=== PATIENT | female | born 1945 | race Caucasian/White ===

== ENCOUNTER 2020-03-31 14:04 | Inpatient (IN) ==
[2020-03-31] MEDS ORDERED: SODIUM CHLORIDE 0.9% 1000ML 1,000 ML IV ONE (14:24)
[2020-03-31] MEDS ORDERED: ACETAMINOPHEN 1,000 MG/100 ML VIAL IV STA (14:40)
--- NOTE | 2020-03-31 14:50 | XRay Report ---
XR chest 1V portable HISTORY: 74 years-old Female SEPSIS acute chest trauma status post fall. Sepsis. COMPARISON: Chest radiograph 02/01/2018 TECHNIQUE: Portable AP view of the chest FINDINGS: Cardiac silhouette is normal in size. There is a focal ill-defined 3.9 x 3.3 cm masslike opacity of t he right suprahilar lung. No pneumothorax, pleural effusion or overt pulmonary edema. Degenerative ch anges of the shoulders and spine. IMPRESSION: Focal ill-defined 3.9 cm masslike opacity of the right suprahilar lung is suggestive of p neumonia versus pulmonary lesion. Correlation with CT of the chest is recommended to further evaluate . ACT 112: Negative or not required by law. The above report was generated using voice recognition software. It may contain grammatical, syntax o r spelling errors. Electronically signed by: Aries Montenegro M.D. 03/31/2020 2:49 PM
[2020-03-31 16:03] LABS: Basophils # (auto) 0.02 K/uL (0-0.2); Basophils % (auto) 0.2 %; Hematocrit (blood only) 38.5 % (37-47); Hemoglobin 13.3 g/dL (12.0-16.0); Immature Granulocytes # (auto) 0.04 K/uL (0.00-0.02); Immature Granulocytes % (auto) 0.3 %; Lymphocytes # (auto) 0.74 K/uL (1.2-3.4); Lymphocytes % (auto) 5.7 %; Mean Corpuscular Hgb Conc 34.5 g/dL (32-36); Mean Corpuscular Volume 86.7 fL (80-100); Mean Platelet Volume 9.8 fL (7.4-10.4); Monocytes # (auto) 0.99 K/uL (0.11-0.59); Monocytes % (auto) 7.6 %; Neutrophils # (auto) 11.27 K/uL (1.4-6.5); Neutrophils % (auto) 86.2 %; Platelet Count 162 K/uL (130-400); Red Blood Count 4.44 M/uL (4.2-5.4); White Blood Count 13.06 K/uL (4.8-10.8)
[2020-03-31 16:14] LABS: INR 1.1 (0.9-1.1); Partial Thromboplastin Ratio 0.8; Prothrombin Time 11.4 Seconds (9.0-12.0)
[2020-03-31] MEDS ORDERED: LEVOFLOXACIN/D5W 750 MG/150 ML BAG IV STA (16:33)
[2020-03-31] MEDS ORDERED: CEFEPIME 2,000 MG/20 ML VIAL IV STA (16:33)
[2020-03-31 16:37] LABS: Alanine Aminotransferase 50 U/L (12-78); Albumin Level 3.3 gm/dl (3.4-5.0); Aspartate Aminotransferase 40 U/L (15-37); BUN Creatinine Ratio 13.3 (10-20); Blood Urea Nitrogen 9 mg/dl (7-18); Calcium 8.8 mg/dl (8.5-10.1); Carbon Dioxide 27 mmol/L (21-32); Chloride 101 mmol/L (98-107); Creatinine Clr Calc Pharmacy 59.8 ml/min; Est GFR (Non-African American) 84.6; Glucose 141 mg/dl (70-99); Magnesium 2.1 mg/dl (1.8-2.4); Potassium 3.4 mmol/L (3.5-5.1); Sodium 136 mmol/L (136-145)
[2020-03-31 16:41] LABS: Albumin Globulin Ratio 0.8 (0.9-2); Alkaline Phosphatase 67 U/L (45-117); Bilirubin,Total 0.8 mg/dl (0.2-1); Creatine Kinase 57 U/L (26-192); Creatine Kinase MB < 1.0 ng/ml (0.5-3.6); Globulin 4.4 gm/dl (2.5-4.0); Total Protein 7.7 gm/dl (6.4-8.2); Troponin I < 0.015 ng/ml (0-0.045)
[2020-03-31] MEDS ORDERED: OPTIRAY 320 125ml IV ONE (17:15)
[2020-03-31] MEDS ORDERED: CEFEPIME CONSULT ACTIVE PRN (17:22)
[2020-03-31] MEDS ORDERED: DOXYCYCLINE HYCLATE 100 MG in DEXTROSE 5% 100 ML IV STA (17:24)
[2020-03-31] MEDS ORDERED: ACETAMINOPHEN 325 MG TAB PO PRN (17:27)
[2020-03-31] MEDS ORDERED: PROMETHAZINE HCL 6.25 MG in SODIUM CHLORIDE 0.9% 50 ML IV PRN (17:29)
--- NOTE | 2020-03-31 17:31 | CT Scan Report ---
CT OF THE HEAD WITHOUT CONTRAST CLINICAL HISTORY: Pt c/o fall, hit head COMPARISON STUDY: Head CT February 01, 2018. CT DOSE: 745.80 mGy.cm TECHNIQUE: Helical axial images of the head were obtained without IV contrast. Automated exposure con trol was utilized for the study. A dose lowering technique was utilized adhering to the principles o f ALARA. FINDINGS: No acute intracranial hemorrhage, midline shift or mass effect is present. White matter hyp odensities are unchanged and suggest small vessel disease. The ventricular system is unremarkable. No calcifications are unchanged. The basilar cisterns are patent. No extra-axial collections are presen t. There are no findings to suggest acute dural sinus thrombosis or acute territorial infarct. No sig nificant calvarial abnormalities are present. Visualized portions of the sinuses and mastoid air cell s are clear. IMPRESSION: 1. No acute intracranial findings. 2. No calvarial fracture. ACT 112: Negative or not required by law. Electronically signed by: Denton Law M.D. 03/31/2020 5:30 PM
[2020-03-31] MEDS ORDERED: POTASSIUM CHLORIDE 20 MEQ TABCR PO STA (17:32)
[2020-03-31] MEDS ORDERED: POTASSIUM CHLORIDE / WTR 10 MEQ/100 ML PLCT IV STA (17:35)
[2020-03-31] MEDS ORDERED: SODIUM CHLORIDE 0.9% 1000ML 1,000 ML IV STA (17:35)
--- NOTE | 2020-03-31 17:40 | CT Scan Report ---
CT ANGIOGRAPHY OF THE CHEST, PULMONARY EMBOLUS PROTOCOL CLINICAL HISTORY: Fall. Chest pain. Abnormal chest radiograph. COMPARISON STUDY: Chest radiographs February 02, 2008 18 and March 31, 2020. TECHNIQUE: Following IV administration of Optiray-320, helical axial images of the chest were obtaine d utilizing the pulmonary embolus protocol. Maximal intensity projections and sagittal and coronal r eformats were viewed on an independent 3D workstation. IV contrast was administered without complica tion. Automated exposure control was utilized for the study. A dose lowering technique was utilized adhering to the principles of ALARA. FINDINGS: Left lobe thyroid nodule is incidentally noted. No pulmonary emboli are identified. There is no evidence for traumatic injury to the thoracic aorta. The heart is mildly enlarged. There is no pericardial effusion. There is no pneumothorax or pleural effusion. There is moderate right upper lob e consolidation. Central airways are patent. Several right-sided rib fractures are likely old. Upper abdomen is unremarkable. There is a probable splenule. A few mild thoracic spine compression deformit ies are likely old. IMPRESSION: 1. No pulmonary emboli identified. 2. Moderate upper lobe consolidation suggestive of pneumonia. 3. No acute traumatic findings within the chest. ACT 112: Negative or not required by law. Electronically signed by: Denton Law M.D. 03/31/2020 5:38 PM
--- NOTE | 2020-03-31 18:09 | History & Physical Report ---
Date of Service March 31, 2020 Assessment & Plan (1) Fall: -initial reason for ED presentation was because patient fell and hit her head 1 day ago and when waking up on 03/31/2020 she reported feeling dizzy still and her helped her come to hospital -No acute intracranial findings and No calvarial fracture on CT head scan -get PT/OT evaluations (2) Right upper lobe pneumonia: -however, incidentally while being evaluated in the ED after her fall at home, patient was found to have fever of 39.3 celsius and her Chest X ray of a Focal ill-defined 3.9 cm masslike opacity of the right suprahilar lung is suggestive of pneumonia versus pulmonary lesion -ED physician ordered CTA and No pulmonary emboli identified but the Moderate upper lobe consolidation suggestive of pneumonia -patient is to be started on cefepime and doxycycline -she has history of penicillin allergy but her believes that this was from when she was a child and likely on a rash. Patient does have outpatient listed drug allergies that meclizine and prochlorperazine can cause angioedema -follow the blood cultures. obtain sputum cultures. the procalcitonin is, oddly, negative. (3) Hypertension: -described in outpatient notes -unclear as to whether patient is taking blood pressure medications at this time, outpatient primary care notes does not mention recent anti-hypertensives, the patient personally denies taking any blood pressure medications, patient's by phone [phone] reports that she is taking blood pressure medication similar to him. admitting hospitalist have asked her to bring in her home medications to the hospital for medical reconciliation when possible, admitting physician called patient's pharmacy of [facility] and the pharmacist could not verify any blood pressure medications -monitor the blood pressure (4) Hyperlipidemia: -continue home dose atorvastatin 20 mg daily (5) Blind left eye: -chronic condition, this was secondary to histoplasmosis as per outpatient records DVT prophylaxis as Loevnox History of Present Illness -initial reason for ED presentation was because patient fell and hit her head 1 day ago and when waking up on 03/31/2020 she reported feeling dizzy still and her helped her come to hospital -No acute intracranial findings and No calvarial fracture on CT head scan -however, incidentally while being evaluated in the ED after her fall at home, patient was found to have fever of 39.3 celsius and her Chest X ray of a Focal ill-defined 3.9 cm masslike opacity of the right suprahilar lung is suggestive of pneumonia versus pulmonary lesion -ED physician ordered CTA and No pulmonary emboli identified but the Moderate upper lobe consolidation suggestive of pneumonia -patient is to be started on cefepime and doxycycline -she has history of penicillin allergy but her believes that this was from when she was a child and likely on a rash. Patient does have outpatient listed drug allergies that meclizine and prochlorperazine can cause angioedema on review of systems, patient is hard of hearing but she denies any prior symptoms of fevers, shortness of breath (breathing on room air), chest pain, abdomen pain, nausea, vomiting, problems with urination, problems with bowel movements Primary Care Provider: Chelsea Monson DO Allergies Allergy/AdvReac Type Severity Reaction Status Date / Time meclizine Allergy Unknown THROAT Unverified 02/01/18 19:52 SWELLS Penicillins Allergy Unknown RASH Unverified 02/01/18 19:52 prochlorperazine Allergy Difficulty Verified 03/31/20 18:09 [From Compazine] Breathing Home Medications Home Medications Medication Instructions Recorded Confirmed Type atorvastatin 20 mg PO DAILY 03/31/20 03/31/20 History Past Med/Surg History Social History Smoking Status: Never smoker Feels Safe at Home: Yes Review of Systems Review of Systems: All systems reviewed & are unremarkable except as noted in Subjective Physical Exam Constitutional: comfortable and + combative hard of hearing Eyes: left eye blindness, chronic ENMT: external ear and nose normal, oropharynx normal Neck: trachea midline, no thyromegaly normal visual inspection Respiratory: normal respiratory effort, lungs clear to auscultation Cardiovascular: Rate/Rhythm: regular rate and regular rhythm Gastrointestinal (Abdomen): normal bowel sounds, soft, nontender, no hepatos plenomegaly Musculoskeletal: Head/Neck/Chest: normocephalic and head atraumatic Neurologic: moves all extremities Psychiatric: Orientation: alert and cooperative Results & Data Results & Data ([facility]) Vital Signs (Past 12 Hours) Vital Signs Temp Pulse Resp BP Pulse Ox 03/31/20 17:55 36.7 C 03/31/20 17:40 93 H 24 93 03/31/20 17:31 93 03/31/20 17:30 123/72 93 03/31/20 17:25 121/65 93 03/31/20 17:24 94 03/31/20 16:50 87 20 94 03/31/20 16:45 88 22 133/74 94 03/31/20 16:40 93 H 23 95 03/31/20 16:31 89 19 95 03/31/20 16:30 89 20 134/74 94 03/31/20 16:20 92 H 16 95 03/31/20 16:15 101 H 21 121/76 95 03/31/20 16:10 93 H 18 95 03/31/20 16:01 95 H 21 94 03/31/20 16:00 95 H 21 143/83 H 93 03/31/20 15:50 99 H 18 95 03/31/20 15:45 99 H 23 152/76 H 93 03/31/20 15:40 100 H 23 03/31/20 15:35 100 H 21 93 03/31/20 15:30 98 H 19 161/85 H 94 03/31/20 14:06 39.3 C H 104 H 18 137/83 93 Code Status & VTE Plan VTE Prophylaxis Plan VTE Prophylaxis will be ordered: Yes
--- NOTE | 2020-03-31 18:22 | Electrocardiogram Report ---
Test Reason : Blood Pressure : / mmHG Vent. Rate : 103 BPM Atrial Rate : 103 BPM P-R Int : 126 ms QRS Dur : 072 ms QT Int : 332 ms P-R-T Axes : 064 047 040 degrees QTc Int : 434 ms Sinus tachycardia Possible Left atrial enlargement Borderline ECG When compared with ECG of 01-FEB-2018 18:19, No significant change was found Confirmed by Gio Escalante ([id number]) on 03/31/2020 6:21:39 PM Referred By: Confirmed By:Alok Escalante
[2020-03-31 18:36] LABS: Appearance Urine Clear (Clear); Bacteria Urine Automated Negative (Negative); Bilirubin Urine Negative (Negative); Blood Urine Trace (Negative); Color Urine Yellow; Epithelial Cell Urine Auto >30 /lpf (0-5); Glucose Urine UA Negative (Negative); Ketones Urine 1+ (Negative); Leukocyte Esterase Urine Negative (Negative); Nitrite Urine Negative (Negative); Protein Urine Trace (Negative); RBC Urine Automated 0-4 /hpf (0-4); Specific Gravity Urine > 1.045 (1.000-1.030); Urobilinogen Urine Negative (Negative); pH Urine 5.5 (4.5-7.5)
[2020-03-31] MEDS ORDERED: ONDANSETRON INJ 2 MG/ML 2 ML VIAL IV PRN (20:20)
[2020-03-31 23:41] LABS: BUN Creatinine Ratio 10.9 (10-20); C Reactive Protein 9.39 mg/dl (0-0.29); Calcium 8.8 mg/dl (8.5-10.1); Creatinine Clr Calc Pharmacy 58.1 ml/min; Est GFR (African American) 95.9; Est GFR (Non-African American) 82.7
[2020-04-01] MEDS: CEFEPIME 2,000 MG in SYRINGE 7.5 ML IV SCH ×4 (00:44→22:45)
[2020-04-01] MEDS: DOXYCYCLINE HYCLATE 100 MG in DEXTROSE 5% 100 ML IV SCH ×2 (05:28→19:00)
[2020-04-01 05:39] LABS: Basophils # (auto) 0.01 K/uL (0-0.2); Basophils % (auto) 0.1 %; Hematocrit (blood only) 34.9 % (37-47); Hemoglobin 11.7 g/dL (12.0-16.0); Immature Granulocytes # (auto) 0.03 K/uL (0.00-0.02); Immature Granulocytes % (auto) 0.3 %; Lymphocytes # (auto) 1.11 K/uL (1.2-3.4); Lymphocytes % (auto) 11.4 %; Mean Corpuscular Hemoglobin 29.2 pg (25-34); Mean Corpuscular Hgb Conc 33.5 g/dL (32-36); Mean Platelet Volume 9.6 fL (7.4-10.4); Monocytes # (auto) 0.67 K/uL (0.11-0.59); Monocytes % (auto) 6.9 %; Neutrophils # (auto) 7.91 K/uL (1.4-6.5); Neutrophils % (auto) 81.3 %; Platelet Count 157 K/uL (130-400); RDW Coefficient of Variation 13.2 % (11.5-14.5); RDW Standard Deviation 42.5 fL (36.4-46.3); Red Blood Count 4.01 M/uL (4.2-5.4); White Blood Count 9.73 K/uL (4.8-10.8)
[2020-04-01 06:10] LABS: Albumin Globulin Ratio 0.7 (0.9-2); Albumin Level 2.8 gm/dl (3.4-5.0); BUN Creatinine Ratio 10.4 (10-20); Bilirubin,Total 0.5 mg/dl (0.2-1); Calcium 8.2 mg/dl (8.5-10.1); Creatinine Clr Calc Pharmacy 58.9 ml/min; Est GFR (African American) 97.5; Est GFR (Non-African American) 84.2; Globulin 3.9 gm/dl (2.5-4.0); Potassium 3.4 mmol/L (3.5-5.1); Total Protein 6.7 gm/dl (6.4-8.2)
[2020-04-01] MEDS ORDERED: POTASSIUM CHLORIDE 20 MEQ TABCR PO STA (09:38)
--- NOTE | 2020-04-01 18:02 | Hospitalist Progress Note ---
Date of Service April 01, 2020 Assessment & Plan (1) Fall: Dizziness Fall CT head: No acute intracranial findings. No calvarial fracture. PT/OT Fall precautions (2) Right upper lobe pneumonia: Sepsis-POA Right Upper Lobe Pneumonia Chest CTA: No pulmonary emboli identified. Moderate upper lobe consolidation suggestive of pneumonia. No acute traumatic findings within the chest. Blood Cx:pending COVID-19 PCR: Negative Negative Procalcitonin On Cefepime, Doxycycline (3) Hypertension: Currently not on any meds Monitor (4) Hyperlipidemia: continue atorvastatin (5) Blind left eye: chronic condition DVT Px: Lovenox SQ Admission and Anticipated Discharge Date Admission Date: March 31, 2020 Subjective Patient is seen and examined at bedside History is difficult to obtain--due to significant hearing impairment Reports cough Denies chest pain, shortness of breath, dizziness, nausea, abdominal pain Febrile today Discussed with patient's family in detail at bedside Review of Systems Review of Systems: All systems reviewed & are unremarkable except as noted in HPI & below Physical Exam Physical Exam: Physical Exam: Vitals signs as noted above General Appearance:Moderately built and nourished, no apparent distress Head: normocephalic, Atraumatic Eyes: normal inspection, EOMI Neck: supple, Trachea midline Respiratory/Chest: Normal breath sounds, CTA Cardiovascular: S1, S2, No murmur Abdomen/GI:Soft, Non tender, Bowel sounds present Extremities/Musculoskelatal:normal inspection, no edema Neurologic/Psych:AAOX3, grossly no focal neurological deficits, +Hearing impairment Skin: normal color, warm Results & Data Results & Data ([facility]) Vital Signs (Past 12 Hours) Vital Signs Temp Pulse Resp BP Pulse Ox 04/01/20 17:50 37.2 C 04/01/20 16:16 38.2 C H 04/01/20 15:17 38.0 C H 97 H 18 109/65 95 04/01/20 07:21 37.6 C H 99 H 18 128/74 95 Laboratory Results Short CBC 04/01/20 Range/Units 05:18 WBC 9.73 (4.8-10.8) K/uL Hgb 11.7 L (12.0-16.0) g/dL Hct 34.9 L (37-47) % Plt Count 157 (130-400) K/uL BMP 03/31/20 04/01/20 23:02 05:18 Sodium 139 139 Potassium 4.0 D 3.4 L Chloride 108 H 108 H Carbon Dioxide 25 24 BUN 8 7 Creatinine 0.71 0.70 Glucose 134 H 137 H Calcium 8.8 8.2 L Liver Function 04/01/20 Range/Units 05:18 Total Bilirubin 0.5 (0.2-1) mg/dl AST 32 (15-37) U/L ALT 45 (12-78) U/L Alkaline Phosphatase 55 (45-117) U/L Albumin 2.8 L (3.4-5.0) gm/dl Urine 03/31/20 Range/Units 18:04 Urine Color Yellow Urine Appearance Clear (Clear) Urine pH 5.5 (4.5-7.5) Ur Specific [place] > 1.045 H (1.000-1.030) Urine Protein Trace H (Negative) Urine Glucose (UA) Negative (Negative)
[2020-04-02] MEDS: DOXYCYCLINE HYCLATE 100 MG in DEXTROSE 5% 100 ML IV SCH ×2 (05:44→17:18)
[2020-04-02 05:57] LABS: Hematocrit (blood only) 33.2 % (37-47); Hemoglobin 11.1 g/dL (12.0-16.0); Mean Corpuscular Hemoglobin 28.6 pg (25-34); Mean Corpuscular Hgb Conc 33.4 g/dL (32-36); Mean Corpuscular Volume 85.6 fL (80-100); Mean Platelet Volume 9.6 fL (7.4-10.4); Platelet Count 160 K/uL (130-400); RDW Coefficient of Variation 13.5 % (11.5-14.5); RDW Standard Deviation 42.3 fL (36.4-46.3); Red Blood Count 3.88 M/uL (4.2-5.4); White Blood Count 7.42 K/uL (4.8-10.8)
[2020-04-02 06:30] LABS: BUN Creatinine Ratio 13.3 (10-20); Calcium 8.7 mg/dl (8.5-10.1); Creatinine Clr Calc Pharmacy 85.9 ml/min; Est GFR (African American) 110.4; Est GFR (Non-African American) 95.3; Potassium 3.8 mmol/L (3.5-5.1)
[2020-04-02] MEDS: ENOXAPARIN INJ 40 MG/0.4 ML SYR SQ SCH (08:06)
[2020-04-02] MEDS: cefTRIAXone SODIUM 1,000 MG in DEXTROSE 5% 50 ML IV SCH (08:07)
[2020-04-02 09:51] LABS: C-Reactive Protein High Sens. >10.0 mg/L
--- NOTE | 2020-04-02 18:10 | Hospitalist Progress Note ---
Date of Service April 02, 2020 Assessment & Plan (1) Fall: Dizziness Fall CT head: No acute intracranial findings. No calvarial fracture. PT/OT Fall precautions (2) Right upper lobe pneumonia: Sepsis-POA Right Upper Lobe Pneumonia Chest CTA: No pulmonary emboli identified. Moderate upper lobe consolidation suggestive of pneumonia. No acute traumatic findings within the chest. Blood Cx:Negative to date COVID-19 PCR: Negative Negative Procalcitonin On Cefepime, Doxycycline>> transition to ceftriaxone, doxycycline Symptomatically improved (3) Hypertension: Currently not on any meds Monitor (4) Hyperlipidemia: continue atorvastatin (5) Blind left eye: chronic condition DVT Px: Lovenox SQ Admission and Anticipated Discharge Date Admission Date: March 31, 2020 Subjective Patient is seen and examined at bedside History is difficult to obtain--due to significant hearing impairment States feeling well today No specific complaints Discussed with patient's family at bedside Low-grade fever today afternoon No significant cough Denies chest pain, shortness of breath, dizziness, nausea, abdominal pain Review of Systems Review of Systems: All systems reviewed & are unremarkable except as noted in HPI & below Physical Exam Physical Exam: Physical Exam: Vitals signs as noted above General Appearance:Moderately built and nourished, no apparent distress Head: normocephalic, Atraumatic Eyes: normal inspection, EOMI Neck: supple, Trachea midline Respiratory/Chest: Normal breath sounds, CTA Cardiovascular: S1, S2, No murmur Abdomen/GI:Soft, Non tender, Bowel sounds present Extremities/Musculoskelatal:normal inspection, no edema Neurologic/Psych:AAOX3, grossly no focal neurological deficits, +Hearing impairment Skin: normal color, warm Results & Data Results & Data ([facility]) Vital Signs (Past 12 Hours) Vital Signs Temp Pulse Resp BP Pulse Ox 04/02/20 15:07 37.6 C H 99 H 18 120/63 97 04/02/20 07:56 36.9 C 89 16 128/73 96 Laboratory Results Short CBC 04/02/20 Range/Units 05:29 WBC 7.42 (4.8-10.8) K/uL Hgb 11.1 L (12.0-16.0) g/dL Hct 33.2 L (37-47) % Plt Count 160 (130-400) K/uL BMP 04/02/20 05:29 Sodium 138 Potassium 3.8 Chloride 108 H Carbon Dioxide 23 BUN 6 L Creatinine 0.48 L Glucose 122 H Calcium 8.7
--- NOTE | 2020-04-03 03:41 | Emergency Department Note ---
History of Present Illness General Chief complaint: Fall Stated complaint: FALL AND HIT HEAD YESTERDAY,UNSTEADY Time Seen by Provider: 03/31/20 14:24 Source: patient, family (), RN notes reviewed and old records reviewed Mode of arrival: ambulatory Limitations: no limitations History of Present Illness Provider complaint: Fall, hit head Location: head Radiation: non-radiation Maximum Pain Intensity: 0 Associated symptoms: + fever/chills, + nausea/vomiting and + weakness; no chest pain, no diaphoresis, no headaches and no shortness of breath Treatments prior to arrival: none This is a 74-year-old female brought in by her over concerns of the patient had a fall and has been weak since the fall. Patient reports she tripped over uneven carpet in her house and hit her head. Since that time approximately 1 day ago she has been extremely weak and has been having difficulty ambulating around her house. Patient denies any other symptoms including cough diaphoresis chills. She denies any pain. Home Medications Home Medications Medication Instructions Recorded Confirmed Type atorvastatin 20 mg PO DAILY 03/31/20 03/31/20 History Allergies Allergy/AdvReac Type Severity Reaction Status Date / Time meclizine Allergy Unknown THROAT Unverified 02/01/18 19:52 SWELLS Penicillins Allergy Unknown RASH Unverified 02/01/18 19:52 prochlorperazine Allergy Difficulty Verified 03/31/20 18:09 [From Compazine] Breathing Past Med/Surg History Medical History Alzheimer disease Hearing deficit Hyperlipidemia Osteoarthritis Syncope Surgical History History of laparoscopy History of tonsillectomy History of tooth extraction Family History Mother Family hx of colon cancer Social History Smoking Status: Never smoker Second Hand Exposure: No; Do You Dip or Chew Tobacco: No; Tobacco Cessation Education Requested by Patient: No Hx Alcohol Use: Yes Alcohol type: beer Hx Substance Use: No Communication Ability: Effective Director Of Compliance Required: No Beliefs That Will Affect Care: Mu-Ism Mu-Ism Beliefs: Spiritism Current Living Situation: Spouse Other Information That Helps Us Care for You: No Feels Safe at Home: Yes Safety Concerns: Feels Safe At This Time Review of Systems A total of 10 systems reviewed and were otherwise negative Physical Exam VITAL SIGNS - Vital signs and nursing notes were reviewed. GENERAL - 74-year-old female appearing stated age who is in no acute distress. Communicates well with provider and answers questions appropriately. SKIN - Without rashes. HEAD - NC/AT. EYES - PERRL with EOMI bilaterally. Sclera anicteric. Palpebral conjunctiva pink and moist with no injection noted. EARS - No deformities of external structures noted on gross examination bilaterally. No pain elicited with palpation of the tragus bilaterally. External auditory canals without discharge or otorrhea. Tympanic membranes pearly dupont without retraction or bulging. No fluid or purulent material visualized behind the TM. Handle of malleus, umbo, cone of light, pars tensa/flaccid all easily visualized. NOSE - Midline and without cyanosis. No epistaxis or purulent drainage noted. Septum midline without deviation or septal hematoma noted. MOUTH/OROPHARYNX - Without perioral cyanosis. Buccal mucosa pink and moist and without leukoplakia. Tongue midline with equal elevation of palate bilaterally. No tonsillar hypertrophy, erythema, or exudates noted. dentition noted. NECK - Neck with FROM. Supple to palpation. lymphadenopathy noted. No nuchal rigidity. LUNGS - Chest wall symmetric without accessory muscle use, intercostals retractions, or central cyanosis. Normal vesicular breath sounds CTA B/L. No wheezes, rales, or rhonchi appreciated. CARDIAC - RRR with S1/S2. No murmur, rubs, or gallops appreciated. ABDOMEN - Abdominal contour without pulsations or visible masses. BS normoactive all four quadrants. No tenderness, palpable masses, hepatospl enomegaly, or ascites noted. EXTREMITIES - No clubbing or peripheral cyanosis. No pretibial edema present. +3/5 radial, posterior tibial, and dorsalis pedis pulses palpated throughout. +5/5 strength noted in UE/LE bilaterally. NEUROLOGIC - Cranial nerves II through XII grossly intact. Sensory intact to light touch throughout. Patellar reflexes +2/4. PSYCH - A&Ox3 and cooperates fully with examiner. Pt is very pleasant and interacts well with examiner. Course Administered Medications Acetaminophen (Acetaminophen 325 Mg Tab) 325 mg PO Q6H PRN PRN Reason: Pain or Fever Stop: 04/30/20 17:29 Last Admin: 04/01/20 16:17 Dose: 325 mg Documented by: [id number] Enoxaparin Sodium (Enoxaparin Inj 40 Mg/0.4 Ml Syr) 40 mg SQ QAM RADHA Stop: 05/02/20 08:59 Last Admin: 04/02/20 08:06 Dose: 40 mg Documented by: [id number] Doxycycline Hyclate 100 mg/ (Dextrose) 110 mls @ 50 mls/hr IV Q12H [facility] Stop: 04/08/20 05:59 Last Infusion: 04/02/20 19:38 Dose: 0 mls/hr Documented by: [id number] Admin: 04/02/20 17:18 Dose: 100 mls/hr Documented by: [id number] Infusion: 04/02/20 08:05 Dose: 0 mls/hr Documented by: [id number] Admin: 04/02/20 05:44 Dose: 50 mls/hr Documented by: [id number] Infusion: 04/01/20 21:36 Dose: 0 mls/hr Documented by: [id number] Admin: 04/01/20 19:00 Dose: 50 mls/hr Documented by: [id number] Infusion: 04/01/20 07:40 Dose: 0 mls/hr Documented by: [id number] Admin: 04/01/20 05:28 Dose: 50 mls/hr Documented by: [id number] Ceftriaxone Sodium 1,000 mg/ (Dextrose) 60 mls @ 120 mls/hr IV Q24H [facility]; Protocol Stop: 04/09/20 07:59 Last Infusion: 04/02/20 09:31 Dose: 0 mls/hr Documented by: [id number] Admin: 04/02/20 08:07 Dose: 120 mls/hr Documented by: [id number] Discontinued Medications Sodium Chloride (Nss 1000ml) 1,000 mls @ 999 mls/hr IV .Q1H1M ONE Stop: 03/31/20 15:24 Last Infusion: 03/31/20 17:25 Dose: 0 mls/hr Documented by: [id number] Admin: 03/31/20 16:00 Dose: 999 mls/hr Documented by: [id number] Acetaminophen (Ofirmev) 1,000 mg in 100 mls @ 400 mls/hr IV NOW STA Stop: 03/31/20 14:54 Last Infusion: 03/31/20 16:17 Dose: 0 mls/hr Documented by: [id number] Admin: 03/31/20 16:00 Dose: 400 mls/hr Documented by: [id number] Cefepime HCl (Maxipime) 2,000 mg in 20 mls @ 5 mls/min IV NOW STA; Protocol Stop: 03/31/20 16:36 Last Admin: 03/31/20 17:29 Dose: 5 mls/min Documented by: [id number] Levofloxacin/Dextrose (Levaquin/D5w) 750 mg in 150 mls @ 100 mls/hr IV NOW STA Stop: 03/31/20 18:02 Last Admin: 04/01/20 07:44 Dose: Not Given Documented by: [id number] Cefepime HCl 2,000 mg/ Syringe 20 mls @ 5.5 mls/min IV Q8H [facility]; Protocol Stop: 04/02/20 00:01 Last Admin: 04/01/20 22:45 Dose: 5.5 mls/min Documented by: [id number] Admin: 04/01/20 16:20 Dose: 5.5 mls/min Documented by: [id number] Admin: 04/01/20 07:54 Dose: 5.5 mls/min Documented by: [id number] Admin: 04/01/20 00:44 Dose: 5.5 mls/min Documented by: [id number] Doxycycline Hyclate 100 mg/ (Dextrose) 110 mls @ 50 mls/hr IV ONE STA Stop: 03/31/20 19:35 Last Infusion: 03/31/20 20:03 Dose: 0 mls/hr Documented by: [id number] Admin: 03/31/20 17:51 Dose: 50 mls/hr Documented by: [id number] Sodium Chloride (Nss 1000ml) 1,000 mls @ 80 mls/hr IV .B20H29H STA Stop: 04/01/20 06:04 Last Infusion: 04/01/20 06:32 Dose: 0 mls/hr Documented by: [id number] Admin: 03/31/20 18:13 Dose: 80 mls/hr Documented by: [id number] Potassium Chloride (K Jacobo / Wtr) 10 meq in 100 mls @ 100 mls/hr IV ONE STA Stop: 03/31/20 18:34 Last Infusion: 03/31/20 19:13 Dose: 0 mls/hr Documented by: [id number] Admin: 03/31/20 18:13 Dose: 100 mls/hr Documented by: [id number] Ioversol (Optiray 320 125ml) 120 ml IV ONCE ONE Stop: 03/31/20 17:16 Last Admin: 03/31/20 17:15 Dose: 120 ml Documented by: [id number] Miscellaneous Information (Cefepime Consult Active) 1 ea N/A UD PRN PRN Reason: Consult Stop: 04/02/20 00:01 Last Admin: 03/31/20 17:30 Dose: 1 ea Documented by: [id number] Potassium Chloride (Potassium Chloride 20 Meq Tabcr) 40 meq PO NOW STA Stop: 03/31/20 17:33 Last Admin: 03/31/20 18:14 Dose: 40 meq Documented by: [id number] Potassium Chloride (Potassium Chloride 20 Meq Tabcr) 40 meq PO NOW STA Stop: 04/01/20 09:39 Last Admin: 04/01/20 11:14 Dose: 40 meq Documented by: [id number] Medical Decision Making Differential Diagnosis Infection, dehydration, metabolic abnormality, hypo/hyperglycemia, electrolyte disturbance, anemia, hypoxia, cardiac sources, intracerebral event, toxicologic, neurologic, as well as other pathologies. Medical Records Attestation: I reviewed the patient's medical records. Home Medications Current Medication List: was personally reviewed by me Laboratory Data Attestation: I reviewed the patient's lab results. Result diagrams: 04/02/20 05:29 04/02/20 05:29 Lab Results 03/31/20 03/31/20 03/31/20 Range/Units 15:25 15:25 15:30 WBC 13.06 H (4.8-10.8) K/uL RBC 4.44 (4.2-5.4) M/uL Hgb 13.3 (12.0-16.0) g/dL Hct 38.5 (37-47) % MCV 86.7 (80-100) fL MCH 30.0 (25-34) pg MCHC 34.5 (32-36) g/dL RDW Std Deviation 42.0 (36.4-46.3) fL RDW Coeff of Shana 13.0 (11.5-14.5) % Plt Count 162 (130-400) K/uL MPV 9.8 (7.4-10.4) fL Immature Gran % (Auto) 0.3 % Neut % (Auto) 86.2 % Lymph % (Auto) 5.7 % [place] % (Auto) 7.6 % Eos % (Auto) 0.0 % Baso % (Auto) 0.2 % Neut # (Auto) 11.27 H (1.4-6.5) K/uL Lymph # (Auto) 0.74 L (1.2-3.4) K/uL [place] # (Auto) 0.99 H (0.11-0.59) K/uL Eos # (Auto) 0.00 (0-0.5) K/uL Baso # (Auto) 0.02 (0-0.2) K/uL Immature Gran # (Auto) 0.04 H (0.00-0.02) K/uL PT (9.0-12.0) Seconds INR (0.9-1.1) APTT (21.0-31.0) Seconds PTT Ratio Sodium (136-145) mmol/L Potassium (3.5-5.1) mmol/L Chloride (98-107) mmol/L Carbon Dioxide (21-32) mmol/L Anion Gap (3-11) BUN (7-18) mg/dl Creatinine (0.6-1.2) mg/dl Est Cr Clr Drug Dosing ml/min Est GFR ( Amer) Est GFR (Non-Af Amer) BUN/Creatinine Ratio (10-20) Glucose (70-99) mg/dl Lactate (0.4-2.0) mmol/L Calcium (8.5-10.1) mg/dl Magnesium (1.8-2.4) mg/dl Total Bilirubin (0.2-1) mg/dl AST (15-37) U/L ALT (12-78) U/L Alkaline Phosphatase (45-117) U/L Total Creatine Kinase (26-192) U/L CK-MB (CK-2) (0.5-3.6) ng/ml CK/CKMB % Calc Troponin I (0-0.045) ng/ml Total Protein (6.4-8.2) gm/dl Albumin (3.4-5.0) gm/dl Globulin (2.5-4.0) gm/dl Albumin/Globulin Ratio (0.9-2) Procalcitonin (0-0.5) ng/ml COVID-19 Eval Order Covid19 Done at [facility] COVID-19 PCR NEGATIVE (Negative) 03/31/20 03/31/20 03/31/20 Range/Units 15:30 15:30 15:30 WBC (4.8-10.8) K/uL RBC (4.2-5.4) M/uL Hgb (12.0-16.0) g/dL Hct (37-47) % MCV (80-100) fL MCH (25-34) pg MCHC (32-36) g/dL RDW Std Deviation (36.4-46.3) fL RDW Coeff of Shana (11.5-14.5) % Plt Count (130-400) K/uL MPV (7.4-10.4) fL Immature Gran % (Auto) % Neut % (Auto) % Lymph % (Auto) % [place] % (Auto) % Eos % (Auto) % Baso % (Auto) % Neut # (Auto) (1.4-6.5) K/uL Lymph # (Auto) (1.2-3.4) K/uL [place] # (Auto) (0.11-0.59) K/uL Eos # (Auto) (0-0.5) K/uL Baso # (Auto) (0-0.2) K/uL Immature Gran # (Auto) (0.00-0.02) K/uL PT 11.4 (9.0-12.0) Seconds INR 1.1 (0.9-1.1) APTT 22.0 (21.0-31.0) Seconds PTT Ratio 0.8 Sodium 136 (136-145) mmol/L Potassium 3.4 L (3.5-5.1) mmol/L Chloride 101 (98-107) mmol/L Carbon Dioxide 27 (21-32) mmol/L Anion Gap 8.0 (3-11) BUN 9 (7-18) mg/dl Creatinine 0.69 (0.6-1.2) mg/dl Est Cr Clr Drug Dosing 59.8 ml/min Est GFR ( Amer) 98.0 Est GFR (Non-Af Amer) 84.6 BUN/Creatinine Ratio 13.3 (10-20) Glucose 141 H (70-99) mg/dl Lactate (0.4-2.0) mmol/L Calcium 8.8 (8.5-10.1) mg/dl Magnesium 2.1 (1.8-2.4) mg/dl Total Bilirubin 0.8 (0.2-1) mg/dl AST 40 H (15-37) U/L ALT 50 (12-78) U/L Alkaline Phosphatase 67 (45-117) U/L Total Creatine Kinase 57 (26-192) U/L CK-MB (CK-2) < 1.0 (0.5-3.6) ng/ml CK/CKMB % Calc TNP Troponin I < 0.015 (0-0.045) ng/ml Total Protein 7.7 (6.4-8.2) gm/dl Albumin 3.3 L (3.4-5.0) gm/dl Globulin 4.4 H (2.5-4.0) gm/dl Albumin/Globulin Ratio 0.8 L (0.9-2) Procalcitonin 0.14 (0-0.5) ng/ml COVID-19 Eval Order COVID-19 PCR (Negative) 03/31/20 Range/Units 15:46 WBC (4.8-10.8) K/uL RBC (4.2-5.4) M/uL Hgb (12.0-16.0) g/dL Hct (37-47) % MCV (80-100) fL MCH (25-34) pg MCHC (32-36) g/dL RDW Std Deviation (36.4-46.3) fL RDW Coeff of Shana (11.5-14.5) % Plt Count (130-400) K/uL MPV (7.4-10.4) fL Immature Gran % (Auto) % Neut % (Auto) % Lymph % (Auto) % [place] % (Auto) % Eos % (Auto) % Baso % (Auto) % Neut # (Auto) (1.4-6.5) K/uL Lymph # (Auto) (1.2-3.4) K/uL [place] # (Auto) (0.11-0.59) K/uL Eos # (Auto) (0-0.5) K/uL Baso # (Auto) (0-0.2) K/uL Immature Gran # (Auto) (0.00-0.02) K/uL PT (9.0-12.0) Seconds INR (0.9-1.1) APTT (21.0-31.0) Seconds PTT Ratio Sodium (136-145) mmol/L Potassium (3.5-5.1) mmol/L Chloride (98-107) mmol/L Carbon Dioxide (21-32) mmol/L Anion Gap (3-11) BUN (7-18) mg/dl Creatinine (0.6-1.2) mg/dl Est Cr Clr Drug Dosing ml/min Est GFR ( Amer) Est GFR (Non-Af Amer) BUN/Creatinine Ratio (10-20) Glucose (70-99) mg/dl Lactate 1.0 (0.4-2.0) mmol/L Calcium (8.5-10.1) mg/dl Magnesium (1.8-2.4) mg/dl Total Bilirubin (0.2-1) mg/dl AST (15-37) U/L ALT (12-78) U/L Alkaline Phosphatase (45-117) U/L Total Creatine Kinase (26-192) U/L CK-MB (CK-2) (0.5-3.6) ng/ml CK/CKMB % Calc Troponin I (0-0.045) ng/ml Total Protein (6.4-8.2) gm/dl Albumin (3.4-5.0) gm/dl Globulin (2.5-4.0) gm/dl Albumin/Globulin Ratio (0.9-2) Procalcitonin (0-0.5) ng/ml COVID-19 Eval Order COVID-19 PCR (Negative) Imaging Data Radiologist's Impression: [facility], [place] [phone] CT Scan Report Patient: GREG ROSEN Date: 03/31/20 MR#: [id number]: [address] Acct ID:[id number]: [address] Date: 1945[facility] Zip: [place] [address] Age: 74Location: ED Sex: FRoom/Bed: Att Phy:Diagnosis: FALL AND HIT HEAD YESTERDAY,UNSTEADY Estelita Phy: Chelsea Monson, DOService Date: 03/31/20 Fam Phy:Interpreting Phy: Denton Law MD Admit Phy: Ordering Phy: Rodolfo Ni MD cc: ~ CT OF THE HEAD WITHOUT CONTRAST CLINICAL HISTORY: Pt c/o fall, hit head COMPARISON STUDY: Head CT February 01, 2018. CT DOSE: 745.80 mGy.cm TECHNIQUE: Helical axial images of the head were obtained without IV contrast. Automated exposure control was utilized for the study. A dose lowering technique was utilized adhering to the principles of ALARA. FINDINGS: No acute intracranial hemorrhage, midline shift or mass effect is present. White matter hypodensities are unchanged and suggest small vessel disease. The ventricular system is unremarkable. No calcifications are unchanged. The basilar cisterns are patent. No extra-axial collections are present. There are no findings to suggest acute dural sinus thrombosis or acute territorial infarct. No significant calvarial abnormalities are present. Visualized portions of the sinuses and mastoid air cells are clear. IMPRESSION: 1. No acute intracranial findings. 2. No calvarial fracture. ACT 112: Negative or not required by law. Electronically signed by: Denton Law M.D. 03/31/2020 5:30 PM Dictated: 03/31/201726 Transcribed: 03/31/20 [address] [place], [place] [phone] CT Scan Report Patient: GREG ROSEN Date: 03/31/20 MR#: [id number]: [address] Acct ID:[id number]: [address] Date: 1945[facility] Zip: [place] [address] Age: 74Location: ED Sex: FRoom/Bed: Att Phy:Diagnosis: FALL AND HIT HEAD YESTERDAY,UNSTEADY Estelita Phy: Chelsea Monson, DOService Date: 03/31/20 Fam Phy:Interpreting Phy: Denton Law MD Admit Phy: Ordering Phy: Rodolfo Ni MD cc: ~ CT ANGIOGRAPHY OF THE CHEST, PULMONARY EMBOLUS PROTOCOL CLINICAL HISTORY: Fall. Chest pain. Abnormal chest radiograph. COMPARISON STUDY: Chest radiographs February 02, 2008 and March 31, 2020. TECHNIQUE: Following IV administration of Optiray-320, helical axial images of the chest were obtained utilizing the pulmonary embolus protocol. Maximal intensity projections and sagittal and coronal reformats were viewed on an independent 3D workstation. IV contrast was administered without complication. Automated exposure control was utilized for the study. A dose lowering technique was utilized adhering to the principles of ALARA. FINDINGS: Left lobe thyroid nodule is incidentally noted. No pulmonary emboli are identified. There is no evidence for traumatic injury to the thoracic aorta. The heart is mildly enlarged. There is no pericardial effusion. There is no pn eumothorax or pleural effusion. There is moderate right upper lobe consolidation. Central airways are patent. Several right-sided rib fractures are likely old. Upper abdomen is unremarkable. There is a probable splenule. A few mild thoracic spine compression deformities are likely old. IMPRESSION: 1. No pulmonary emboli identified. 2. Moderate upper lobe consolidation suggestive of pneumonia. 3. No acute traumatic findings within the chest. ACT 112: Negative or not required by law. Electronically signed by: Denton Law M.D. 03/31/2020 5:38 PM Dictated: 03/31/20 173 Transcribed: 03/31/20 [address] [place], [place] [phone] XRay Report Patient: GREG ROSEN LAdmit Date: 03/31/20 MR#: [id number]: [address] Acct ID:[id number]: [address] Date: [address] [place] [address] Zip: [place] [address] Age: 74Location: ED Sex: FRoom/Bed: Att Phy:Diagnosis: FALL AND HIT HEAD YESTERDAY,UNSTEADY Estelita Phy: Chelsea Monson, DOService Date: 03/31/20 Fam Phy:Interpreting Phy: Steve Montenegro Admit Phy: Ordering Phy: Rodolfo Ni MD cc: ~ XR chest 1V portable HISTORY: 74 years-old Female SEPSIS acute chest trauma status post fall. Sepsis. COMPARISON: Chest radiograph 02/01/2018 TECHNIQUE: Portable AP view of the chest FINDINGS: Cardiac silhouette is normal in size. There is a focal ill-defined 3.9 x 3.3 cm masslike opacity of the right suprahilar lung. No pneumothorax, pleural effusion or overt pulmonary edema. Degenerative changes of the shoulders and spine. IMPRESSION: Focal ill-defined 3.9 cm masslike opacity of the right suprahilar lung is suggestive of pneumonia versus pulmonary lesion. Correlation with CT of the chest is recommended to further evaluate. ACT 112: Negative or not required by law. The above report was generated using voice recognition software. It may contain grammatical, syntax or spelling errors. Electronically signed by: Aries Montenegro M.D. 03/31/2020 2:49 PM Dictated: 03/31/20 1447 Transcribed: 03/31/20 144 ECG Data Attestation: I personally reviewed and interpreted this ECG as follows: Indication: + chest pain Rate (beats per minute): 103 Rhythm: + sinus tachycardia ECG [place]: + Normal ECG ST segments: no ST depression and no ST elevation Comparison ECG Date: from (02/01/2018) Change: no significant change MDM Narrative Patient was seen and evaluated as above in room . Review was performed of nursing notes and vital signs. I did review pertinent previous visits and patient history. After obtaining a thorough history and physical examination the above work up was performed. Upon arrival to the emergency department this 74-year-old patient has a fever. A sepsis work-up was initiated. The patient was found to have an elevation in her white blood cell count and does have pneumonia on her chest x-ray. Based on the pneumonia she was sent for CAT scan of the chest. This does not show any evidence of a PE. She was pancultured and started on broad-spectrum antibiotics including doxycycline as well as cefepime. An order was placed for continuous cardiac monitoring. The monitor shows a rate of 100 with Normal SInus rhythm. GCS: 15 The patient was evaluated during the global COVID-19 pandemic, and that diagnosis was suspected/considered upon their initial presentation. Their evaluation, treatment and testing was consistent with current guidelines for patients who present with complaints or symptoms that may be related to COVID-1 9. Impression & Plan Fall, Right upper lobe pneumonia, Hypertension Discharge Plan Visit Data Chief Complaint: Fall Stated Complaint: FALL AND HIT HEAD YESTERDAY,UNSTEADY ED Provider: Rodolfo Ni Discharge Problem: Fall, Right upper lobe pneumonia, Hypertension Patient Disposition: Admitted As Inpatient Discharge Instructions Interventions: ED Discharge Assessment Last Done: 03/31/20 19:18 Discharge Problem: Fall Qualifiers: Encounter type: initial encounter Qualified Code(s): W19.XXXA - Unspecified fall, initial encounter Right upper lobe pneumonia Qualifiers: Pneumonia type: due to unspecified organism Qualified Code(s): J18.9 - Pneumonia, unspecified organism Hypertension Qualifiers: Hypertension type: unspecified Qualified Code(s): I10 - Essential (primary) hypertension
[2020-04-03] MEDS: DOXYCYCLINE HYCLATE 100 MG in DEXTROSE 5% 100 ML IV SCH (05:42)
[2020-04-03 06:17] LABS: Hemoglobin 11.5 g/dL (12.0-16.0); Mean Corpuscular Hemoglobin 28.9 pg (25-34); Mean Corpuscular Hgb Conc 33.8 g/dL (32-36); Mean Corpuscular Volume 85.4 fL (80-100); Mean Platelet Volume 9.8 fL (7.4-10.4); Platelet Count 191 K/uL (130-400); RDW Coefficient of Variation 13.4 % (11.5-14.5); RDW Standard Deviation 42.5 fL (36.4-46.3); Red Blood Count 3.98 M/uL (4.2-5.4); White Blood Count 6.81 K/uL (4.8-10.8)
[2020-04-03 06:47] LABS: BUN Creatinine Ratio 16.2 (10-20); Calcium 9.2 mg/dl (8.5-10.1); Creatinine Clr Calc Pharmacy 77.8 ml/min; Est GFR (African American) 106.9; Est GFR (Non-African American) 92.2; Potassium 3.4 mmol/L (3.5-5.1)
[2020-04-03] MEDS: cefTRIAXone SODIUM 1,000 MG in DEXTROSE 5% 50 ML IV SCH (07:52)
[2020-04-03] MEDS: ENOXAPARIN INJ 40 MG/0.4 ML SYR SQ SCH (08:16)
[2020-04-03] MEDS ORDERED: POTASSIUM CHLORIDE 20 MEQ TABCR PO ONE (09:16)
--- NOTE | 2020-04-03 13:23 | Hospitalist Progress Note ---
Date of Service April 03, 2020 Assessment & Plan (1) Fall: Dizziness Fall CT head: No acute intracranial findings. No calvarial fracture. PT/OT Fall precautions (2) Right upper lobe pneumonia: Sepsis-POA Right Upper Lobe Pneumonia Chest CTA: No pulmonary emboli identified. Moderate upper lobe consolidation suggestive of pneumonia. No acute traumatic findings within the chest. Blood Cx:Negative to date COVID-19 PCR: Negative Negative Procalcitonin On Cefepime, Doxycycline>> transition to ceftriaxone, doxycycline Plan to discharge on p.o. antibiotics to complete the course (3) Hypertension: Currently not on any meds Monitor (4) Hyperlipidemia: continue atorvastatin (5) Blind left eye: chronic condition DVT Px: Lovenox SQ Disposition Plan to discharge home today. Admission and Anticipated Discharge Date Admission Date: March 31, 2020 Subjective Patient is seen and examined at bedside States feeling well today Denies cough, chest pain, shortness of breath, dizziness, nausea, abdominal pain Offers no other complaints Eager to get discharged Family at bedside Afebrile today Review of Systems Review of Systems: All systems reviewed & are unremarkable except as noted in HPI & below Physical Exam Physical Exam: Physical Exam: Vitals signs as noted above General Appearance:Moderately built and nourished, no apparent distress Head: normocephalic, Atraumatic Eyes: normal inspection, EOMI Neck: supple, Trachea midline Respiratory/Chest: Normal breath sounds, CTA Cardiovascular: S1, S2, No murmur Abdomen/GI:Soft, Non tender, Bowel sounds present Extremities/Musculoskelatal:normal inspection, no edema Neurologic/Psych:AAOX3, grossly no focal neurological deficits, +Hearing impairment Skin: normal color, warm Results & Data Results & Data ([facility]) Vital Signs (Past 12 Hours) Vital Signs Temp Pulse Resp BP Pulse Ox 04/03/20 07:28 36.8 C 83 16 150/71 H 93 Laboratory Results Short CBC 04/03/20 Range/Units 05:21 WBC 6.81 (4.8-10.8) K/uL Hgb 11.5 L (12.0-16.0) g/dL Hct 34.0 L (37-47) % Plt Count 191 (130-400) K/uL [facility] 04/03/20 05:21 Sodium 139 Potassium 3.4 L Chloride 107 Carbon Dioxide 25 BUN 9 Creatinine 0.53 L Glucose 111 H Calcium 9.2 (1) Fall Encounter type: initial encounter Qualified Code(s): W19.XXXA - Unspecified fall, initial encounter (2) Right upper lobe pneumonia Pneumonia type: due to unspecified organism Qualified Code(s): J18.9 - Pneumonia, unspecified organism (3) Hypertension Hypertension type: unspecified Qualified Code(s): I10 - Essential (primary) hypertension
--- NOTE | 2020-04-03 13:30 | Discharge Summary ---
Date of Service April 03, 2020 Admission HPI Per Admitting Provider -initial reason for ED presentation was because patient fell and hit her head 1 day ago and when waking up on 03/31/2020 she reported feeling dizzy still and her helped her come to hospital -No acute intracranial findings and No calvarial fracture on CT head scan -however, incidentally while being evaluated in the ED after her fall at home, patient was found to have fever of 39.3 celsius and her Chest X ray of a Focal ill-defined 3.9 cm masslike opacity of the right suprahilar lung is suggestive of pneumonia versus pulmonary lesion -ED physician ordered CTA and No pulmonary emboli identified but the Moderate upper lobe consolidation suggestive of pneumonia -patient is to be started on cefepime and doxycycline -she has history of penicillin allergy but her believes that this was from when she was a child and likely on a rash. Patient does have outpatient listed drug allergies that meclizine and prochlorperazine can cause angioedema on review of systems, patient is hard of hearing but she denies any prior symptoms of fevers, shortness of breath (breathing on room air), chest pain, abdomen pain, nausea, vomiting, problems with urination, problems with bowel movements Primary Care Provider: Chelsea Monson, DO Admission Exam Per Admitting Provider Physical Exam Constitutional: comfortable and + combative hard of hearing Eyes: left eye blindness, chronic ENMT: external ear and nose normal, oropharynx normal Neck: trachea midline, no thyromegaly normal visual inspection Respiratory: normal respiratory effort, lungs clear to auscultation Cardiovascular: Rate/Rhythm: regular rate and regular rhythm Gastrointestinal (Abdomen): normal bowel sounds, soft, nontender, no hepatosplenomegaly Musculoskeletal: Head/Neck/Chest: normocephalic and head atraumatic Neurologic: moves all extremities Psychiatric: Orientation: alert and cooperative Principal Diagnosis Sepsis Community-acquired pneumonia Discharge Data Allergies Allergy/AdvReac Type Severity Reaction Status Date / Time meclizine Allergy Unknown THROAT Unverified 02/01/18 19:52 SWELLS Penicillins Allergy Unknown RASH Unverified 02/01/18 19:52 prochlorperazine Allergy Difficulty Verified 03/31/20 18:09 [From Compazine] Breathing Consultations 03/31/20 17:07 ED Decision to Admit Stat 03/31/20 18:01 Consult Case Management - Discharge Planning Routine Procedures Performed Chest CTA: No pulmonary emboli identified. Moderate upper lobe consolidation suggestive of pneumonia. No acute traumatic findings within the chest. Ordered Studies 03/31/20 15:03 CT angio chest PE protocol Stat 03/31/20 17:02 CT head/brain wo con Stat Hospital Course (1) Fall: Dizziness Fall CT head: No acute intracranial findings. No calvarial fracture. PT/OT Fall precautions (2) Right upper lobe pneumonia: Sepsis-POA Right Upper Lobe Pneumonia Chest CTA: No pulmonary emboli identified. Moderate upper lobe consolidation suggestive of pneumonia. No acute traumatic findings within the chest. Blood Cx:Negative to date COVID-19 PCR: Negative Negative Procalcitonin On Cefepime, Doxycycline>> transition to ceftriaxone, doxycycline Plan to discharge on p.o. antibiotics to complete the course (3) Hypertension: Currently not on any meds Monitor (4) Hyperlipidemia: continue atorvastatin (5) Blind left eye: chronic condition DVT Px: Lovenox SQ Disposition Plan to discharge home today. Total Time Total Time Spent Total Time Spent (In Minutes): 39 minutes Total Time Includes: Examination of the Patient, Discharge Planning, Medication Reconciliation, Communication With Other Providers and Other Discharge Plan Discharge Items Patient Disposition: Home - Self-Care Reason For Visit: PNEUMONIA Discharge Diagnosis: Sepsis Community-acquired pneumonia Activity: Resume your previous activity Exercise/Sports: Gradually increase as tolerated Non-emergency contact: Primary Care Provider Call non-emergency contact if: you have any medication questions, your symptoms worsen, your pain is not controlled, your pain is worsening, your pain is unusual for you, your pain is concerning for you and you have a fever Follow-up/Referrals: Jose Eason DO [Outside Practitioners] - Diet: Heart Healthy Addtl Attending Provider Instructions: Follow-up with Dr. Eason on April 09, 2020 at 9 AM for primary care services Complete antibiotic course doxycycline, cefuroxime as prescribed. Your final blood cultures are pending at the time of discharge follow-up with your physician for results. Seek immediate medical attention if your symptoms reoccur or worsen Pending Studies at Discharge: Yes Studies:: Blood Cultures Stand-Alone Forms: My [employer], Smoking Cessation Medications and DC Order Prescriptions: New Lactobacillus acidoph-L.bulgar [Floranex] 1 million cell Tablet 4 tab PO TIDM 7 Days Qty: 28 RF: 0 doxycycline hyclate 100 mg tablet 100 mg PO BID Qty: 12 RF: 0 cefuroxime axetil 500 mg tablet 500 mg PO BID Qty: 12 RF: 0 Continued atorvastatin 20 mg tablet 20 mg PO DAILY RF: 0 Discharge Orders: Discharge Order (Routine); Ordered 04/03/20 Ordered By: Jose Juan Hendrickson Admission Data Admit Date/Time: 03/31/20 18:01 Attending Provider: Jose Juan Hendrickson Admit Provider: Rohan Lamb Primary Care Provider: Chelsea Monson Other Providers: Rohan Lamb Other Interventions: Discharge Summary Assessment (RN) Last Done: 04/03/20 13:34
[2020-04-03] MEDS ORDERED: LACTOBACILLUS ACIDOPHILUS (FLORANEX) TAB PO SCH (17:00)
== END 2020-04-03 14:12 | disposition home or self-care (01) | DRG 871 ==
LOC: ED 14:04 → SUATTDRO 18:01 → 3W 18:01